=== PATIENT | female | born 1955 | race Caucasian/White ===

== ENCOUNTER 2016-10-24 03:29 | Emergency (ER) | payer OTHER, MEDICAID ==
[~2016-10-24] VITALS: Ht 160 cm; Wt 93.2 kg
[~2016-10-24 03:29] MED LIST: ALBU18HF INHALATION; ALLO300T46 PO; ALPR0.254 PO; AMOX1TAB10 PO; ARIP2TAB8 PO; ASPI81TA3 PO; CHOL50009 PO; DIPH1TAB25 PO; DIVA250T4 PO; DOCU-159 PO; FOLI1TAB5 PO; HYDR-902 PO; HYDR4TAB PO; METF500T4 PO; METO5TAB65 PO; MONT10TA24 PO; OXYC1TAB23 PO; OXYC20TA41 PO; POTA10TA37 PO
[2016-10-24 03:32] VITALS: Ht 160 cm; Wt 93.2 kg
[2016-10-24] MEDS ORDERED: HYDROCODONE/APAP (10/325) TAB PO ONE (04:30)
--- NOTE | 2016-10-24 05:30 | RADRPT ---
PROCEDURE: XR Hip. CLINICAL INDICATION: Right hip pain. TECHNIQUE: AP and oblique views of the right hip were performed. COMPARISON: No prior exam is available for comparison FINDINGS: Examination is limited secondary to patient's body habitus. The osseous structures demonstrate norm al alignment and mineralization. No acute fracture is identified. There is severe right femoral maura tabular joint space narrowing and acetabular osteophyte formation. The right sacroiliac joint is gr ossly unremarkable. The soft tissues are unremarkable. IMPRESSION: 1. Limited evaluation secondary to patient's body habitus. No definite fracture is seen. 2. Severe right hip arthrosis. RPTAT: HH .Daisy Menon MD, MD Date Time Electronically viewed and signed by .Daisy Menon MD, on 10/24/2016 05:38 .G/
--- NOTE | 2016-10-24 05:45 | ERD ---
ER Documentation Chief Complaint Date/Time DATE: 10/24/16 TIME: 05:51 Chief Complaint back pain and BLE pain r/t mechanical fall HPI This is a 61-year-old female who has right hip pain and lower back pain after slipping out of her bed. No nausea no vomiting no fevers no chills. No head trauma. No loss of consciousness. No other current complaints ROS All systems reviewed and are negative except as per history of present illness. Medications Home Meds Active Scripts Amoxicillin/Potassium Clav (Amox-Clav 875-125 mg Tablet) 875-125 mg Tab, 1 TAB PO BID, #14 TAB Prov:HERBIE FRANCISCO MD 05/19/16 Hydrocodone/Acetaminophen ([place] 10-325 Tablet) 1 Each Tablet, 1 TAB PO Q6H Y for PAIN, #20 TAB Prov:GRACIA GAMEZ DO 05/14/16 Hydromorphone Hcl (Dilaudid) 4 Mg Tab, 4 MG PO Q4H Y for PAIN, #20 TAB Prov:NAEL LITTLEJOHN 04/05/16 Reported Medications Diphenoxylate Hcl-Atropine* (Lomotil*) 1 Tab Tab, 1 TAB PO QID Y for DIARRHEA, TAB 01/20/16 Alprazolam* (Alprazolam*) 0.25 Mg Tablet, 0.25 MG PO Q12 Y for ANXIETY, TAB 01/20/16 Albuterol Sulfate* (Ventolin HFA*) 18 Gm Hfa.aer.ad, 2 PUFF INHALATION Q4H Y for WHEEZING AND SOB, #1 INHALER 01/20/16 Oxycodone Hcl-Acetaminophen* (Oxycodone Hcl-Acetaminophen*) 5-325 Mg Tablet, 1 TAB PO Q4H Y for PAIN, TAB 01/20/16 Oxycodone Hcl* (Oxycontin*) 20 Mg Tab.er.12h, 20 MG PO Q12 Y for PAIN, TAB 01/20/16 Docusate Sodium* (Docusate Sodium*) 100 Mg Capsule, 100 MG PO BID Y for CONSTIPATION, #60 CAP 11/25/15 Divalproex Sodium* (Divalproex Sodium*) 250 Mg Tablet.dr, 750 MG PO QHS, #120 TAB 11/25/15 Aripiprazole* (Abilify*) 2 Mg Tablet, 2 MG PO QHS, #30 TAB 11/25/15 Cholecalciferol* (Vitamin D*) 5,000 Unit Tablet, 5000 UNIT PO DAILY, TAB 07/13/14 Aspirin* (Aspirin* Chew) 81 Mg Tab.chew, 81 MG PO DAILY, TAB.CHEW 07/13/14 Metolazone* (Metolazone*) 5 Mg Tablet, 5 MG PO DAILY, TAB 07/13/14 Potassium Chloride* (K-Dur*) 10 Meq Tab.prt.sr, 10 MEQ PO BID, TAB 07/13/14 Montelukast Sodium* (Montelukast Sodium*) 10 Mg Tablet, 10 MG PO HS, TAB 07/13/14 Allopurinol* (Zyloprim*) 300 Mg Tablet, 300 MG PO DAILY 03/05/13 Multivitamins W-Minerals/Lut (Centrum Silver Chewable Tablet) 1 Tab Tablet, 1 TAB PO DAILY 03/05/13 Metformin* (Glucophage*) 500 Mg Tab, 500 MG PO BID 03/05/13 Allergies Allergies: Coded Allergies: morphine (Verified Allergy, Mild, 05/16/16) UNK SAYS SHE DOESNT LIKE IT, MAKES HER SKIN"CRAWL". AWARE -OK TO GIVE Penicillins (Verified Allergy, Unknown, 10/24/16) PMhx/Soc History of Surgery: Yes (r knee sx) Anesthesia Reaction: No Hx Neurological Disorder: Yes (diabetic neuropathy) Hx Respiratory Disorders: Yes (COPD) Hx Cardiac Disorders: Yes (HTN) Hx Psychiatric Problems: Yes (DEPRESSION) Hx Miscellaneous Medical Probl: Yes (COPD,DM, arthritis,CKD) Hx Alcohol Use: No Hx Substance Use: No Hx Tobacco Use: Yes Smoking Status: Former smoker Physical Exam Vitals Vital Signs Date Time Temp Pulse Resp B/P Pulse Ox O2 Delivery O2 Flow Rate FiO2 10/24/16 04:18 82 11 94/55 96 Room Air 10/24/16 03:32 100.5 89 18 104/56 92 Physical Exam Const: [] Head: Atraumatic Eyes: Normal Conjunctiva ENT: Normal External Ears, Nose and Mouth. Neck: Full range of motion..~ No meningismus. Resp: Clear to auscultation bilaterally Cardio: Regular rate and rhythm, no murmurs Abd: Soft, non tender, non distended. Normal bowel sounds Skin: No petechiae or rashes Back: No midline or flank tenderness Ext: No cyanosis, or edema Neur: Awake and alert Psych: Normal Mood and Affect Results 24 hrs Current Medications Medications (Trade) Dose Ordered Sig/Nelson Route PRN Reason Start Time Stop Time Status Last Admin Dose Admin Acetaminophen/ Hydrocodone Bitart ([place] ()) 1 tab ONCE ONCE PO 10/24/16 04:30 10/24/16 04:31 DC 10/24/16 04:12 Procedures/MDM X-ray Hip 2V Interpreted by me: Bones: [No fracture] Joints: [No dislocation] Foreign body: [None] Medical decision-makin female mechanical fall. No evidence of fracture. At this point is clinically stable. Be discharged back home. Departure Diagnosis: Primary Impression: Fall Encounter type: initial encounter Qualified Code: W19.XXXA - Fall, initial encounter Condition: Stable Patient Instructions: Hip Contusion NAEL LITTLEJOHN Oct 24, 2016 05:53
[2016-10-24 07:30] VITALS: BP 107/77; PULSE 82; RESP 14
== END 2016-10-24 07:30 | disposition home or self-care (01) ==
LOC: E/R 03:29
DX: S39.92XA Unspecified injury of lower back, initial encounter (principal); S79.911A Unspecified injury of right hip, initial encounter; J44.9 Chronic obstructive pulmonary disease, unspecified; E11.9 Type 2 diabetes mellitus without complications; I12.9 Hypertensive chronic kidney disease with stage 1 through stage 4 chronic kidney disease, or unspecified chronic kidney disease; N18.9 Chronic kidney disease, unspecified; W06.XXXA Fall from bed, initial encounter; Y92.9 Unspecified place or not applicable; Z87.891 Personal history of nicotine dependence; Z79.82 Long term (current) use of aspirin; Z79.84 Long term (current) use of oral hypoglycemic drugs
CPT/HCPCS: 73510

== ENCOUNTER 2017-01-15 05:41 | Observation (INO) | payer OTHER, MEDICAID ==
[~2017-01-15] VITALS: Ht 157.5 cm; Wt 93.2 kg
[2017-01-15] MEDS ORDERED: HYDROmorphONE 1 MG/ML SYG IV STA (06:17)
[2017-01-15] MEDS ORDERED: SOD CHLORIDE 0.9% 1,000 ML IV STA ×2 (06:17→07:18)
[2017-01-15 06:38] LABS: ADD SCAN DIFF NO
[2017-01-15 06:39] LABS: BASOPHILS % 0.4 % (0.0-2.0); EOSINOPHILS # 0.2 10^3/ul (0.0-0.5); EOSINOPHILS % 2.2 % (0.0-7.0); HEMATOCRIT 37.5 % (37.0-47.0); HEMOGLOBIN 12.7 g/dl (12.0-16.0); LYMPHOCYTES # 0.6 10^3/ul (0.8-2.9); LYMPHOCYTES % 6.2 % (15.0-51.0); MEAN CORPUSCULAR HEMOGLOBIN 31.1 pg (29.0-33.0); MEAN CORPUSCULAR HGB CONC 33.9 g/dl (32.0-37.0); MEAN CORPUSCULAR VOLUME 91.9 fl (82.0-101.0); MEAN PLATELET VOLUME 10.5 fl (7.4-10.4); MONOCYTES % 9.4 % (0.0-11.0); NEUTROPHIL # 8.4 10^3/ul (1.6-7.5); NEUTROPHILS % 81.5 % (39.0-77.0); PLATELET COUNT 142 10^3/UL (140-415); RED BLOOD COUNT 4.08 10^6/ul (4.20-5.40); RED CELL DISTRIBUTION WIDTH 12.9 % (11.5-14.5); WHITE BLOOD COUNT 10.3 10^3/ul (4.8-10.8)
[2017-01-15 07:05] LABS: CALCIUM 8.9 mg/dl (8.4-10.2); CREATININE 1.34 mg/dl (0.44-1.00); POTASSIUM 3.6 mmol/L (3.5-5.1)
--- NOTE | 2017-01-15 07:47 | RADRPT ---
PROCEDURE: CT L-Spine. CLINICAL INDICATION: Back pain TECHNIQUE: A CT of the lumbar spine was performed on a multidetector CT scanner utilizing axial im ages from the thoracic lumbar junction through the lumbar sacral junction. Sagittal and coronal ref ormatted images were made. The CTDIvol is 38mGy and the DLP is 1060mGycm. One or more of the followi ng dose reduction techniques were used: Automated exposure control, Adjustment of the mA and/or kV a ccording to patient size, and/or use of iterative reconstruction technique. COMPARISON: None available. FINDINGS: Lumbar dextroscoliosis with apex at L2. No evidence of an acute lumbar vertebral compression fracture. T12-L1: Severe disk space narrowing. Disk osteophyte complex and facet arthropathy with mild spina l canal and moderate left foraminal narrowing. L1-2: Grade 1 retrolisthesis. Severe left-sided disk height loss. Broad posterior disk osteophyte c omplex with moderate to severe bony spinal canal narrowing. Moderate to severe left and moderate ri ght foraminal narrowing. L2-3: Grade 1 retrolisthesis. Severe left-sided disk height loss. Broad posterior disk osteophyte c omplex with moderate to severe bony spinal canal narrowing. Moderate to severe left and moderate ri ght foraminal narrowing. L3-4: Severe disk height loss, greater on the left. Broad disk osteophyte complex and facet arthrop athy with severe spinal canal stenosis. Moderate to severe bilateral foraminal stenosis. L4-5: Severe disk height loss, greater on the right. A large disk osteophyte complex and facet arth ropathy results in narrowing of the lateral recess bilaterally and mild spinal canal narrowing. Sev ere right and mild to moderate left foraminal narrowing. L5-1: Severe disk height loss, greater on the right. Broad disk osteophyte complex, foraminal disk osteophytes and facet arthropathy cause severe bilateral foraminal stenosis. No high-grade bony spi nal canal narrowing. Colonic diverticulosis. Left renal cyst. Sacroiliac joint degenerative changes. Aortoiliac atherosclerosis. IMPRESSION: No acute compression fracture. Lumbar dextroscoliosis with apex at L2. Advanced multilevel discogenic and facet disease as detailed. Severe spinal canal stenosis L1-2 through L3-4. Multilevel foraminal narrowings are detailed in the findings. RPTAT: AA .Teddy Knox MD, MD Date Time Electronically viewed and signed by .Teddy Knox MD, MD on 01/15/2017 07:47 .T/
[2017-01-15] MEDS ORDERED: ACETAMINOPHEN 325 MG TAB PO PRN ×2 (08:30→09:30)
[2017-01-15] MEDS ORDERED: ONDANSETRON 4 MG INJ IV PRN ×2 (08:30→09:30)
--- NOTE | 2017-01-15 08:36 | ERA ---
ER Documentation Chief Complaint Date/Time DATE: 01/15/17 TIME: 08:29 Chief Complaint flank pain from fall x 2 days ago HPI 61-year-old female with a history of diabetes, hypertension, and chronic back pain sent from her assisted living facility for difficulty ambulating. She states she was seen at [facility] 2 days ago for a fall out of bed. It was a mechanical fall. She hit her lower back on the ground and her head as well, but denies any loss of consciousness. She has been unable to ambulate since secondary to pain and generalized weakness. She was offered admission at [facility], however she declined. She denies any fevers, chills, chest pain, shortness of breath, focal weakness, urinary incontinence, or bowel incontinence. She does complain of tingling in the back of both of her legs. No abdominal pain, nausea, vomiting. Of note, she was also seen January 11 at [facility] ROS All systems reviewed and are negative except as per history of present illness. Medications Home Meds Active Scripts Amoxicillin/Potassium Clav (Amox-Clav 875-125 mg Tablet) 875-125 mg Tab, 1 TAB PO BID, #14 TAB Prov:HERBIE FRANCISCO MD 05/19/16 Hydrocodone/Acetaminophen ([place] 10-325 Tablet) 1 Each Tablet, 1 TAB PO Q6H Y for PAIN, #20 TAB Prov:GRACIA GAMEZ DO 05/14/16 Hydromorphone Hcl (Dilaudid) 4 Mg Tab, 4 MG PO Q4H Y for PAIN, #20 TAB Prov:NAEL LITTLEJOHN 04/05/16 Reported Medications Diphenoxylate Hcl-Atropine* (Lomotil*) 1 Tab Tab, 1 TAB PO QID Y for DIARRHEA, TAB 01/20/16 Alprazolam* (Alprazolam*) 0.25 Mg Tablet, 0.25 MG PO Q12 Y for ANXIETY, TAB 01/20/16 Albuterol Sulfate* (Ventolin HFA*) 18 Gm Hfa.aer.ad, 2 PUFF INHALATION Q4H Y for WHEEZING AND SOB, #1 INHALER 01/20/16 Oxycodone Hcl-Acetaminophen* (Oxycodone Hcl-Acetaminophen*) 5-325 Mg Tablet, 1 TAB PO Q4H Y for PAIN, TAB 01/20/16 Oxycodone Hcl* (Oxycontin*) 20 Mg Tab.er.12h, 20 MG PO Q12 Y for PAIN, TAB 01/20/16 Docusate Sodium* (Docusate Sodium*) 100 Mg Capsule, 100 MG PO BID Y for CONSTIPATION, #60 CAP 11/25/15 Divalproex Sodium* (Divalproex Sodium*) 250 Mg Tablet.dr, 750 MG PO QHS, #120 TAB 11/25/15 Aripiprazole* (Abilify*) 2 Mg Tablet, 2 MG PO QHS, #30 TAB 11/25/15 Cholecalciferol* (Vitamin D*) 5,000 Unit Tablet, 5000 UNIT PO DAILY, TAB 07/13/14 Aspirin* (Aspirin* Chew) 81 Mg Tab.chew, 81 MG PO DAILY, TAB.CHEW 07/13/14 Metolazone* (Metolazone*) 5 Mg Tablet, 5 MG PO DAILY, TAB 07/13/14 Potassium Chloride* (K-Dur*) 10 Meq Tab.prt.sr, 10 MEQ PO BID, TAB 07/13/14 Montelukast Sodium* (Montelukast Sodium*) 10 Mg Tablet, 10 MG PO HS, TAB 07/13/14 Allopurinol* (Zyloprim*) 300 Mg Tablet, 300 MG PO DAILY 03/05/13 Multivitamins W-Minerals/Lut (Centrum Silver Chewable Tablet) 1 Tab Tablet, 1 TAB PO DAILY 03/05/13 Metformin* (Glucophage*) 500 Mg Tab, 500 MG PO BID 03/05/13 Allergies Allergies: Coded Allergies: morphine (Verified Allergy, Mild, 05/16/16) UNK SAYS SHE DOESNT LIKE IT, MAKES HER SKIN"CRAWL". AWARE -OK TO GIVE Penicillins (Verified Allergy, Unknown, 10/24/16) PMhx/Soc History of Surgery: Yes (r knee sx) Anesthesia Reaction: No Hx Neurological Disorder: Yes (diabetic neuropathy) Hx Respiratory Disorders: Yes (COPD) Hx Cardiac Disorders: Yes (HTN) Hx Psychiatric Problems: Yes (DEPRESSION) Hx Miscellaneous Medical Probl: Yes (COPD,DM, arthritis,CKD) Hx Alcohol Use: No Hx Substance Use: No Hx Tobacco Use: Yes FmHx Family History: No diabetes Physical Exam Vitals Vital Signs Date Time Temp Pulse Resp B/P Pulse Ox O2 Delivery O2 Flow Rate FiO2 01/15/17 07:05 98.9 86 16 103/58 97 Nasal Cannula 2.0 01/15/17 05:55 99.2 80 16 109/53 96 Physical Exam Const: Laying in bed, no apparent distress Head: Atraumatic Eyes: Normal Conjunctiva ENT: Very dry oral mucosa Neck: Full range of motion..~ No meningismus. Resp: Clear to auscultation bilaterally Cardio: Regular rate and rhythm, no murmurs Abd: Soft, non tender, non distended. Normal bowel sounds Skin: No petechiae or rashes Back: Positive midline lumbar tenderness to palpation, no obvious step-offs, no CVA tenderness. No saddle anesthesia Ext: No cyanosis, or edema Neur: Awake and alert and oriented 3, cranial nerves intact, strength and sensations grossly intact in all 4 extremities. Psych: Normal Mood and Affect Result Diagram: 01/15/1720 01/15/1720 Results 24 hrs Laboratory Tests Test 01/15/17 06:20 White Blood Count 10.310^3/ul Red Blood Count 4.0810^6/ul Hemoglobin 12.7g/dl Hematocrit 37.5% Mean Corpuscular Volume 91.9fl Mean Corpuscular Hemoglobin 31.1pg Mean Corpuscular Hemoglobin Concent 33.9g/dl Red Cell Distribution Width 12.9% Platelet Count 06481^3/UL Mean Platelet Volume 10.5fl Neutrophils % 81.5% Lymphocytes % 6.2% Monocytes % 9.4% Eosinophils % 2.2% Basophils % 0.4% Nucleated Red Blood Cells % 0.0/100WBC Neutrophils # 8.410^3/ul Lymphocytes # 0.610^3/ul Monocytes # 1.010^3/ul Eosinophils # 0.210^3/ul Basophils # 0.010^3/ul Nucleated Red Blood Cells # 0.010^3/ul Sodium Level 141mmol/L Potassium Level 3.6mmol/L Chloride Level 99mmol/L Carbon Dioxide Level 29mmol/L Anion Gap 17 Blood Urea Nitrogen 38mg/dl Creatinine 1.34mg/dl Glucose Level 84mg/dl Calcium Level 8.9mg/dl Current Medications Medications (Trade) Dose Ordered Sig/Nelson Route PRN Reason Start Time Stop Time Status Last Admin Dose Admin Sodium Chloride (NS) 1,000 ml @ 1,000 mls/hr Q1H STAT IV 01/15/17 06:17 01/15/17 07:16 DC 01/15/17 07:05 Hydromorphone HCl 1 mg 1 mg ONCE STAT IV 01/15/17 06:17 01/15/17 06:19 DC 01/15/17 06:57 Sodium Chloride (NS) 1,000 ml @ 1,000 mls/hr Q1H STAT IV 01/15/17 07:18 01/15/17 08:17 DC 01/15/17 08:13 Ondansetron HCl (Zofran Inj) 4 mg BRIDGE ORDER PRN IV NAUSEA AND/OR VOMITING 01/15/17 08:30 01/16/17 08:29 Acetaminophen (Tylenol Tab) 650 mg ER BRIDGE PRN PO MILD PAIN/FEVER 01/15/17 08:30 01/16/17 08:29 Procedures/MDM CT lumbar: IMPRESSION: No acute compression fracture. Lumbar dextroscoliosis with apex at L2. Advanced multilevel discogenic and facet disease as detailed. Severe spinal canal stenosis L1-2 through L3-4. Multilevel foraminal narrowings are detailed in the findings. RPTAT: AA .Teddy Knox MD, MD Date Time Electronically viewed and signed by .Teddy Knox MD, MD on 01/15/2017 07:47 Labs CBC: no anemia or evidence of infection BMP: Prerenal azotemia, elevated anion gap MDM Patient is presenting with acute on chronic back pain and inability to walk secondary to her weakness and pain. She has no evidence of focal neurologic deficits on exam. CT of the spine was ordered to evaluate for any spinal fracture or misalignment. There was evidence of chronic changes seen on the CT with nothing acute. I have a low suspicion for cord compression. However given the patient's severe spinal stenosis, she likely has an acute exacerbation of her chronic symptoms. Labs showed evidence of dehydration. Her anion gap is likely elevated secondary to dehydration and less likely septic shock. 2 L of IV fluids were given. Dilaudid was given for pain. Given the patient's uncontrolled pain and inability to ambulate with no half-way care where she lives, the patient will require admission for pain control and physical therapy. She may even need placement in a half-way facility if she does not improve. Accepting Care Team: Current data and ongoing care discussed. Time: Time of admission Primary Provider: Manuel Consulting: None Outstanding Data: none Departure Diagnosis: Primary Impression: Acute exacerbation of chronic low back pain Additional Impressions: Fall with no significant injury Qualified Code: W19.XXXA - Fall with no significant injury, initial encounter Spinal stenosis of lumbar region Acute prerenal azotemia Condition: Fair ADDIE NOLAN MD Jan 15, 2017 08:36
[2017-01-15] MEDS ORDERED: ALBUTEROL/IPRATROPIUM (NEB) 3 ML AMP HHN PRN (09:30)
[2017-01-15] MEDS ORDERED: OXYCODONE/ACETAMINOPHEN (5/325) TAB PO PRN (09:30)
[2017-01-15] MEDS ORDERED: NACL 0.9% 3 ML SYG IV SCH (09:30)
[2017-01-15] MEDS ORDERED: hydrALAzine 20 MG INJ IV PRN (09:30)
[2017-01-15] MEDS ORDERED: ALPRAZOLAM 0.25 MG TAB PO PRN (09:30)
[2017-01-15] MEDS ORDERED: DOCUSATE SODIUM 100 MG CAP PO PRN (09:30)
--- NOTE | 2017-01-15 09:47 | HP ---
Date/Time of Note Date/Time of Note DATE: 01/15/17 TIME: 09:43 Assessment/Plan VTE Prophylaxis VTE Prophylaxis Intervention: heparin Assessment/Plan Chief Complaint/Hosp Course 1. Status post mechanical fall with worsening back pain. The patient has a prior history of chronic back pain and she is on pain medications chronically. The patient's CT scan of the lumbar spine showed no acute compression fracture, but advanced multilevel discogenic and facet disease with severe spinal canal stenosis at L1 through L2 through L3 through L4. Continue pain control. Will involve pain management on the case. Will order physical therapy. 2. COPD. No evidence of exacerbation. Continue as needed inhaled bronchodilators. 3. Chronic kidney disease. Monitor BUN and creatinine closely. Avoid nephrotoxic medications. 4. Depression. Continue mood stabilizers. 5. Gout. Continue allopurinol. Will obtain uric acid level. 6. Essential hypertension. The patient was started on PRN antihypertensives. Blood pressure currently stable. 7 . History of hypothyroidism. Will obtain a thyroid function panel. 8. Type 2 diabetes mellitus. The patient was noticed to be taking metformin. This will be withheld because of her chronic kidney disease. Patient will be started on sliding scale insulin. Hemoglobin A1c will be obtained to evaluate the blood glucose control over the past few weeks. 9. Nicotine use. Cessation will be advised. The patient will be provided with nicotine patch if she has any symptoms of nicotine withdrawal. Plan: The patient will be admitted to inpatient medical surgical floor. The patient will be started on a carbohydrate controlled diet. The patient will be started on DVT prophylaxis and gastrointestinal prophylaxis. The patient will remain a full code. Activities will be with assist. The rest of the patient's management will be based on the clinical course and the results of diagnostic studies. Based on the patient's clinical presentation, she most probably requires at least 2 midnights' stay for further management and evaluation of her clinical presentation. The case and management of this patient was fully discussed with Dr. Jackson Problems: HPI/ROS Admit Date/Time Admit Date/Time Hx of Present Illness Reason for admission: Back pain. Status post mechanical fall. This is a 61-year-old female with multiple comorbidities including essential hypertension, type 2 diabetes mellitus, hypothyroidism, COPD, chronic kidney disease, gout, nicotine use, and obesity who apparently fell from her bed on 01/14 as per the patient's family who was at the bedside during the patient interview. The patient verbalized that she hit her lower back on the floor and hit her head on the night stand. The patient was initially evaluated at [facility], where she was offered to be admitted for further pain management. Apparently the patient's imaging studies from [facility] was negative for any acute injuries. The patient comes back today to [facility] because of intractable lower back pain and inability to ambulate after the fall. The patient denied any focal weakness. However, she was complaining of significant lower back pain. The patient denied any urinary or stool incontinence. She denied any chest pain. She denied any nausea, vomiting, abdominal pain, diarrhea, hematochezia, melena , dysuria, or hematuria. The patient underwent a CT scan of the lumbar spine in the emergency room that was negative for any acute compression fractures. However, the CT showed severe spinal canal stenosis at L1-2 through L3-4. The patient was treated with the IV fluids along with IV analgesics in the emergency room. ROS Constitutional: no complaints Eyes: no complaints ENT: no complaints Respiratory: no complaints Cardiovascular: no complaints Gastrointestinal: no complaints Genitourinary: no complaints Musculoskeletal: back pain Skin: no complaints Neurologic: no complaints Endocrine: no complaints Lymphatic: no complaints Psychological: no complaints Immunologic: no complaints PMH/Family/Social Past Medical History Medical History: diabetes, hypertension, hypothyroid, renal disease, other ( Carotid artery disease) Past Surgical History Past Surgical Hx: other (Right knee replacement, hysterectomy, .) Social History Alcohol Use: none Smoking Status: Current every day smoker Drug Use: none Exam/Review of Systems Vital Signs Vitals Vital Signs Date Time Temp Pulse Resp B/P Pulse Ox O2 Delivery O2 Flow Rate FiO2 01/15/17 07:05 98.9 86 16 103/58 97 Nasal Cannula 2.0 Exam Exam General: Obese 61 year-old female lying in bed in no apparent distress. HEENT: Normocephalic, atraumatic. Eyes: Anicteric sclerae, conjunctivae clear. ENT: Nasal septum midline, oral mucosa moist. Neck supple, no JVD noticed. Respiratory: Bilaterally clear breath sounds. No use of accessory muscles of respiration. No adventitious breath sounds. Cardiovascular: S1, S2 heard. No murmurs or gallops. Abdomen: Soft, nontender, and nondistended. Bowel sounds positive in all 4 quadrants. Genitourinary: Deferred. Extremities: No cyanosis, no clubbing. Bilateral lower extremity pedal edema. Peripheral pulses palpable. Neurologic: Cranial nerves II through XII grossly intact. The patient is awake, alert, and oriented. Skin: Normal skin turgor. Hirsutism. Labs Result Diagram: 01/15/17 0620 01/15/17 0620 Medications Medications Current Medications Acetaminophen (Tylenol Tab) 650 mg Q6H PRN PO PAIN LEVEL 1-3 OR FEVER; Start at 09:30 Oxycodone/ Acetaminophen (Percocet (5/ 325)) 1 tab Q6H PRN PO MODERATE PAIN LEVEL 4-6; Start 01/15/17 at 09:30; Status UNV Hydromorphone HCl (Dilaudid) 0.5 mg Q4H PRN IV SEVERE PAIN LEVEL 7-10; Start at 09:30; Status UNV Heparin Sodium (Porcine) (Heparin (5000 Units/0.5 ml)) 5,000 unit Q12 SC ; Start 01/15/17 at 21:00; Status UNV Ondansetron HCl (Zofran Inj) 4 mg Q6H PRN IV NAUSEA AND/OR VOMITING; Start 04/24 at 09:30; Status UNV Allopurinol (Zyloprim) 300 mg DAILY PO ; Start 01/16/17 at 09:00 Alprazolam (Xanax) 0.25 mg Q12H PRN PO ANXIETY; Start 01/15/17 at 09:30 Aripiprazole (Abilify) 2 mg QHS PO ; Start 01/15/17 at 21:00 Aspirin (Aspirin) 81 mg DAILY PO ; Start 01/16/17 at 09:00; Status UNV Cholecalciferol (Vitamin D) 5,000 unit DAILY PO ; Start 01/16/17 at 09:00; Status UNV Divalproex Sodium (Depakote) 750 mg QHS PO ; Start 01/15/17 at 21:00; Status UNV Docusate Sodium (Colace) 100 mg BID PRN PO CONSTIPATION; Start 01/15/17 at 09: 30; Status UNV Montelukast Sodium (Singulair) 10 mg HS PO ; Start 01/15/17 at 21:00; Status UNV Diagnostic Test (Pha) (Accu-Chek) 1 ea 02 XX ; Start 01/16/17 at 02:00 Hydralazine HCl (Apresoline) 10 mg Q6H PRN IV SBP>160; Start 01/15/17 at 09:30 ; Status UNV Procedures Procedures Lumbar Spine CT IMPRESSION: No acute compression fracture. Lumbar dextroscoliosis with apex at L2. Advanced multilevel discogenic and facet disease as detailed. Severe spinal canal stenosis L1-2 through L3-4. Multilevel foraminal narrowings are detailed in the findings. PRIYANKA DUEÑAS NP Jan 15, 2017 09:47
[2017-01-15] MEDS ORDERED: GLUCOSE GEL 15 GRAM TUBE BUCCAL PRN (10:00)
[2017-01-15] MEDS ORDERED: DEXTROSE 50% 50 ML SYRINGE IV PRN ×2 (10:00)
[2017-01-15] MEDS ORDERED: GLUCOSE GEL 15 GRAM TUBE PO PRN ×2 (10:00)
[2017-01-15] MEDS ORDERED: GLUCAGON 1 MG INJ IM PRN (10:00)
[2017-01-15] MEDS: INSULIN ASPART [NOVOLOG] 3 ML PEN SC SCH ×3 (12:00→21:00)
[2017-01-15] MEDS ORDERED: LOPERAMIDE 2 MG CAP PO ONE (12:00)
[2017-01-15 12:35] LABS: CHOL/HDL RATIO 2.3 RATIO
[2017-01-15 15:10] VITALS: TEMP 98.7
[2017-01-15] MEDS: HYDROmorphONE 1 MG/ML SYG IV PRN ×2 (15:15→20:04)
[2017-01-15 17:18] VITALS: PULSE 71
[2017-01-15 18:55] VITALS: BP 106/52; RESP 20
[2017-01-15 20:39] VITALS: BP 129/58; RESP 18
[2017-01-15] MEDS ORDERED: DIVALPROEX (EC) 250 MG TAB PO SCH (21:00)
[2017-01-15] MEDS ORDERED: ARIPIPRAZOLE 2 MG TAB PO SCH (21:00)
[2017-01-15] MEDS ORDERED: MONTELUKAST 10 MG TAB PO SCH (21:00)
[2017-01-15] MEDS: HEPARIN 5,000 UNIT/0.5 ML VIAL SC SCH (22:04)
[2017-01-15 23:33] VITALS: Ht 157.5 cm; Wt 93.2 kg
[2017-01-16] MEDS: HYDROmorphONE 1 MG/ML SYG IV PRN ×3 (00:34→09:26)
[2017-01-16] MEDS ORDERED: ACCU-CHEK XX SCH (02:00)
[2017-01-16 06:30] LABS: ADD SCAN DIFF NO
[2017-01-16 06:46] LABS: BASOPHILS % 0.3 % (0.0-2.0); EOSINOPHILS # 0.3 10^3/ul (0.0-0.5); EOSINOPHILS % 3.2 % (0.0-7.0); HEMATOCRIT 33.7 % (37.0-47.0); HEMOGLOBIN 11.1 g/dl (12.0-16.0); LYMPHOCYTES # 1.6 10^3/ul (0.8-2.9); LYMPHOCYTES % 20.2 % (15.0-51.0); MEAN CORPUSCULAR HEMOGLOBIN 30.5 pg (29.0-33.0); MEAN CORPUSCULAR HGB CONC 32.9 g/dl (32.0-37.0); MEAN CORPUSCULAR VOLUME 92.6 fl (82.0-101.0); MEAN PLATELET VOLUME 11.2 fl (7.4-10.4); MONOCYTE # 0.7 10^3/ul (0.3-0.9); MONOCYTES % 9.3 % (0.0-11.0); NEUTROPHIL # 5.2 10^3/ul (1.6-7.5); NEUTROPHILS % 66.7 % (39.0-77.0); PLATELET COUNT 138 10^3/UL (140-415); RED BLOOD COUNT 3.64 10^6/ul (4.20-5.40); RED CELL DISTRIBUTION WIDTH 12.8 % (11.5-14.5); WHITE BLOOD COUNT 7.8 10^3/ul (4.8-10.8)
[2017-01-16 07:04] LABS: CALCIUM 8.7 mg/dl (8.4-10.2); CREATININE 0.99 mg/dl (0.44-1.00); POTASSIUM 3.5 mmol/L (3.5-5.1)
[2017-01-16 07:35] LABS: MAGNESIUM 1.8 mg/dl (1.7-2.5); PHOSPHORUS 2.7 mg/dl (2.5-4.9)
[2017-01-16] MEDS: INSULIN ASPART [NOVOLOG] 3 ML PEN SC SCH ×2 (08:08→12:15)
[2017-01-16 08:12] VITALS: BP 119/55; RESP 20
[2017-01-16] MEDS ORDERED: ALLOPURINOL 300 MG TAB PO SCH (09:00)
[2017-01-16] MEDS ORDERED: CHOLECALCIFEROL 1,000 UNIT TAB PO SCH (09:00)
[2017-01-16] MEDS ORDERED: ASPIRIN 81 MG TAB PO SCH (09:00)
[2017-01-16] MEDS: HEPARIN 5,000 UNIT/0.5 ML VIAL SC SCH (09:35)
--- NOTE | 2017-01-16 12:25 | PDOCDIS ---
Discharge Instructions DIAGNOSIS Discharge Diagnosis Intractable back pain. CONDITION Patient Condition: Stable OTHER ORDERS: Other Orders: 1. Resume home medications. 2. Take a low-cholesterol, carbohydrate controlled diet. 3. Activities with assist. 4. Follow-up with your primary care physician 1 week. PRIYANKA DUEÑAS NP Jan 16, 2017 12:25
--- NOTE | 2017-01-16 14:21 | DS ---
Date/Time of Note Date/Time of Note DATE: 01/16/17 TIME: 14:17 Discharge Summary Admission/Discharge Info Admit Date/Time Jan 15, 2017 at 08:27 Discharge Date/Time Discharge Diagnosis 1. Intractable back pain. 2. Status post mechanical fall with worsening back pain. 3. COPD. 4. Chronic kidney disease. 5. Depression. 6. Gout. 7. Essential hypertension. 8. History of hypothyroidism. 9. Type 2 diabetes mellitus. 10. Obesity. Patient Condition: Stable Consults 1. Sharon Mullen MD, Pain Management. Procedures Lumbar Spine CT IMPRESSION: No acute compression fracture. Lumbar dextroscoliosis with apex at L2. Advanced multilevel discogenic and facet disease as detailed. Severe spinal canal stenosis L1-2 through L3-4. Multilevel foraminal narrowings are detailed in the findings. Hx of Present Illness This is a 61-year-old female with multiple comorbidities including essential hypertension, type 2 diabetes mellitus, hypothyroidism, COPD, chronic kidney disease, gout, nicotine use, and obesity who apparently fell from her bed on 01/14 as per the patient's family who was at the bedside during the patient interview. The patient verbalized that she hit her lower back on the floor and hit her head on the night stand. The patient was initially evaluated at [facility], where she was offered to be admitted for further pain management. Apparently the patient's imaging studies from [facility] was negative for any acute injuries. The patient comes back today to [facility] because of intractable lower back pain and inability to ambulate after the fall. The patient denied any focal weakness. However, she was complaining of significant lower back pain. The patient denied any urinary or stool incontinence. She denied any chest pain. She denied any nausea, vomiting, abdominal pain, diarrhea, hematochezia, melena , dysuria, or hematuria. The patient underwent a CT scan of the lumbar spine in the emergency room that was negative for any acute compression fractures. However, the CT showed severe spinal canal stenosis at L1-2 through L3-4. The patient was treated with the IV fluids along with IV analgesics in the emergency room. Hospital Course The patient was admitted to inpatient medical surgical floor. The patient was started on appropriate pain medications. Pain management consult was called for managing analgesics. A physical therapy evaluation was ordered. Physical therapy evaluated the patient and recommended no long term needs. The patient currently lives in an assisted living facility. The patient has all the supplies at home including a front wheeled walker and a wheelchair. Home health was arranged for home physical therapy and home safety evaluation because the patient is planning to go home soon from the assisted living facility. The patient was noticed to have chronic kidney disease. However, the patient was taking metformin at home. Therefore, the patient's metformin was discontinued. The patient's renal function remains stable. Nephrotoxic medications were avoided. Patient has underlying COPD. She had no evidence of any COPD exacerbation. The patient was maintained on inhaled bronchodilators. Patient has a history of gout. The patient was noted to have elevated uric acid levels. The patient was continued on allopurinol. The patient has history of essential hypertension. Her blood pressure remained stable. She was maintained on as needed antihypertensives for any high blood pressure readings. The patient has underlying type 2 diabetes mellitus. Patient's hemoglobin A1c was found to be 5.9. The patient's blood sugars were controlled throughout the hospital course and that the patient did not need any corrective insulin. The patient had discontinued any metformin at home specifically since the patient has underlying chronic kidney disease. The patient apparently has history of hypothyroidism. She was not taking any Synthroid at home. The patient's thyroid function panel was within normal limits. The patient is a current nicotine use. The patient was advised on a cessation. Discharge Instructions 1. Resume home medications. 2. Take a low-cholesterol, carbohydrate controlled diet. 3. Activities with assist. 4. Follow-up with your primary care physician 1 week. The patient verbalized understanding of her discharge instructions. The case and management of this patient was fully discussed with Dr. Jackson [place] Meds Active Scripts Hydrocodone/Acetaminophen ([place] 10-325 Tablet) 1 Each Tablet, 1 TAB PO Q6H Y for PAIN, #20 TAB Prov:GRACIA GAMEZ DO 05/14/16 Reported Medications Diphenoxylate Hcl-Atropine* (Lomotil*) 1 Tab Tab, 1 TAB PO QID Y for DIARRHEA, TAB 01/20/16 Alprazolam* (Alprazolam*) 0.25 Mg Tablet, 0.25 MG PO Q12 Y for ANXIETY, TAB 01/20/16 Albuterol Sulfate* (Ventolin HFA*) 18 Gm Hfa.aer.ad, 2 PUFF INHALATION Q4H Y for WHEEZING AND SOB, #1 INHALER 01/20/16 Oxycodone Hcl* (Oxycontin*) 20 Mg Tab.er.12h, 20 MG PO Q12 Y for PAIN, TAB 01/20/16 Docusate Sodium* (Docusate Sodium*) 100 Mg Capsule, 100 MG PO BID Y for CONSTIPATION, #60 CAP 11/25/15 Divalproex Sodium* (Divalproex Sodium*) 250 Mg Tablet.dr, 750 MG PO QHS, #120 TAB 11/25/15 Aripiprazole* (Abilify*) 2 Mg Tablet, 2 MG PO QHS, #30 TAB 11/25/15 Cholecalciferol* (Vitamin D*) 5,000 Unit Tablet, 5000 UNIT PO DAILY, TAB 07/13/14 Aspirin* (Aspirin* Chew) 81 Mg Tab.chew, 81 MG PO DAILY, TAB.CHEW 07/13/14 Montelukast Sodium* (Montelukast Sodium*) 10 Mg Tablet, 10 MG PO HS, TAB 07/13/14 Allopurinol* (Zyloprim*) 300 Mg Tablet, 300 MG PO DAILY 03/05/13 Multivitamins W-Minerals/Lut (Centrum Silver Chewable Tablet) 1 Tab Tablet, 1 TAB PO DAILY 03/05/13 Discontinued Reported Medications Oxycodone Hcl-Acetaminophen* (Oxycodone Hcl-Acetaminophen*) 5-325 Mg Tablet, 1 TAB PO Q4H Y for PAIN, TAB 01/20/16 Metolazone* (Metolazone*) 5 Mg Tablet, 5 MG PO DAILY, TAB 07/13/14 Potassium Chloride* (K-Dur*) 10 Meq Tab.prt.sr, 10 MEQ PO BID, TAB 07/13/14 Metformin* (Glucophage*) 500 Mg Tab, 500 MG PO BID 03/05/13 Discontinued Scripts Amoxicillin/Potassium Clav (Amox-Clav 875-125 mg Tablet) 875-125 mg Tab, 1 TAB PO BID, #14 TAB Prov:HERBIE FRANCISCO MD 05/19/16 Hydromorphone Hcl (Dilaudid) 4 Mg Tab, 4 MG PO Q4H Y for PAIN, #20 TAB Prov:NAEL LITTLEJOHN 04/05/16 Follow-up Plan Follow-up with your primary care physician in 1 week. Primary Care Provider Ronak Duenas MD Time spent on discharge: > 30 minutes Pending Labs Laboratory Tests Test 01/15/17 18:42 01/15/17 21:01 01/16/17 05:25 01/16/17 08:04 Bedside Glucose 85mg/dL (70-220) 113mg/dL (70-220) 101mg/dL (70-220) White Blood Count 7.810^3/ul (4.8-10.8) Red Blood Count 3.6410^6/ul (4.20-5.40) Hemoglobin 11.1g/dl (12.0-16.0) Hematocrit 33.7% (37.0-47.0) Mean Corpuscular Volume 92.6fl (82.0-101.0) Mean Corpuscular Hemoglobin 30.5pg (29.0-33.0) Mean Corpuscular Hemoglobin Concent 32.9g/dl (32.0-37.0) Red Cell Distribution Width 12.8% (11.5-14.5) Platelet Count 88872^3/UL (140-415) Mean Platelet Volume 11.2fl (7.4-10.4) Neutrophils % 66.7% (39.0-77.0) Lymphocytes % 20.2% (15.0-51.0) Monocytes % 9.3% (0.0-11.0) Eosinophils % 3.2% (0.0-7.0) Basophils % 0.3% (0.0-2.0) Nucleated Red Blood Cells % 0.0/100WBC (0.0-0.0) Neutrophils # 5.210^3/ul (1.6-7.5) Lymphocytes # 1.610^3/ul (0.8-2.9) Monocytes # 0.710^3/ul (0.3-0.9) Eosinophils # 0.310^3/ul (0.0-0.5) Basophils # 0.010^3/ul (0.0-0.1) Nucleated Red Blood Cells # 0.010^3/ul (0.0-0.0) Sodium Level 141mmol/L (135-144) Potassium Level 3.5mmol/L (3.5-5.1) Chloride Level 100mmol/L (97-110) Carbon Dioxide Level 30mmol/L (21-31) Anion Gap 15 (8-16) Blood Urea Nitrogen 27mg/dl (7-20) Creatinine 0.99mg/dl (0.44-1.00) Glucose Level 79mg/dl (70-220) Calcium Level 8.7mg/dl (8.4-10.2) Phosphorus Level 2.7mg/dl (2.5-4.9) Magnesium Level 1.8mg/dl (1.7-2.5) Test 01/16/17 11:59 Bedside Glucose 99mg/dL (70-220) PRIYANKA DUEÑAS NP Jan 16, 2017 14:21 PRIYANKA DUEÑAS NP Jan 16, 2017 14:21
== END 2017-01-16 14:45 | disposition home health service (06) ==
LOC: E/R 05:41 → MS2 08:27
PROVIDERS: ADMIT Family Medicine; ATTEND Family Medicine
DX: M54.5 Low back pain (principal); J44.9 Chronic obstructive pulmonary disease, unspecified; I12.9 Hypertensive chronic kidney disease with stage 1 through stage 4 chronic kidney disease, or unspecified chronic kidney disease; E11.22 Type 2 diabetes mellitus with diabetic chronic kidney disease; E11.40 Type 2 diabetes mellitus with diabetic neuropathy, unspecified; N18.9 Chronic kidney disease, unspecified; F32.9 Major depressive disorder, single episode, unspecified; M10.9 Gout, unspecified; E03.9 Hypothyroidism, unspecified; M19.90 Unspecified osteoarthritis, unspecified site; E66.9 Obesity, unspecified; Z68.37 Body mass index [BMI] 37.0-37.9, adult; Z79.82 Long term (current) use of aspirin; Z79.84 Long term (current) use of oral hypoglycemic drugs; Z88.5 Allergy status to narcotic agent; Z88.0 Allergy status to penicillin; F17.200 Nicotine dependence, unspecified, uncomplicated; W06.XXXA Fall from bed, initial encounter; Y93.9 Activity, unspecified; Y99.9 Unspecified external cause status; Y92.9 Unspecified place or not applicable
CPT/HCPCS: 36415; 72131; 80048; 80061; 82306; 82652; 82962; 83036; 83735; 84100; 84439; 84443; 84560; 85025; 96361; 96374; 96376; 97162; 99285; G0378; J1170; J1644; J1815; J7030

== ENCOUNTER 2017-01-22 20:37 | Emergency (ER) | payer OTHER, MEDICAID ==
[~2017-01-22] VITALS: Ht 162.6 cm; Wt 80.0 kg
[~2017-01-22 20:37] MED LIST changes: -AMOX1TAB10 PO; -HYDR4TAB PO; -METF500T4 PO; -METO5TAB65 PO; -OXYC1TAB23 PO; -POTA10TA37 PO
[2017-01-22 20:43] VITALS: Ht 162.6 cm; Wt 80.0 kg
[2017-01-22] MEDS ORDERED: HYDROmorphONE 1 MG/ML SYG IM STA (21:16)
[2017-01-22] MEDS ORDERED: KETOROLAC 60 MG INJ IM STA (21:16)
[2017-01-22] MEDS ORDERED: NAPR-260 PO (21:18)
[2017-01-22] MEDS ORDERED: HYDR-902 PO (21:18)
[2017-01-22] MEDS ORDERED: METH750T93 PO (21:18)
--- NOTE | 2017-01-22 21:23 | ERD ---
ER Documentation Chief Complaint Date/Time DATE: 01/22/17 TIME: 21:21 Chief Complaint Back pain/chronic HPI This 61-year-old female presents with exacerbation of her lower back pain. She had previously fallen and injured her tailbone area. She has no new trauma. States that she has some [place] at home but has not been taking any anti- inflammatory pain medicine. No leg weakness. Has no other complaints. Denies shortness of breath. I reviewed her EMR and see that she has history of COPD and admission for severe sepsis but she denies any fevers or chills as well. States that she is just here for back pain ROS All systems reviewed and are negative except as per history of present illness. Medications Home Meds Active Scripts Naproxen* (Naprosyn*) 500 Mg Tablet, 500 MG PO BID, #20 TAB Prov:LUIS MEEHAN DO 01/22/17 Methocarbamol* (Robaxin*) 750 Mg Tablet, 750 MG PO TID, #14 TAB Prov:LUIS MEEHAN DO 01/22/17 Hydrocodone/Acetaminophen ([place] 10-325 Tablet) 1 Each Tablet, 1 EACH PO Q6, # 14 TAB Prov:LUIS MEEHAN DO 01/22/17 Hydrocodone/Acetaminophen ([place] 10-325 Tablet) 1 Each Tablet, 1 TAB PO Q6H Y for PAIN, #20 TAB Prov:GRACIA GAMEZ DO 05/14/16 Reported Medications Diphenoxylate Hcl-Atropine* (Lomotil*) 1 Tab Tab, 1 TAB PO QID Y for DIARRHEA, TAB 01/20/16 Alprazolam* (Alprazolam*) 0.25 Mg Tablet, 0.25 MG PO Q12 Y for ANXIETY, TAB 01/20/16 Albuterol Sulfate* (Ventolin HFA*) 18 Gm Hfa.aer.ad, 2 PUFF INHALATION Q4H Y for WHEEZING AND SOB, #1 INHALER 01/20/16 Oxycodone Hcl* (Oxycontin*) 20 Mg Tab.er.12h, 20 MG PO Q12 Y for PAIN, TAB 01/20/16 Docusate Sodium* (Docusate Sodium*) 100 Mg Capsule, 100 MG PO BID Y for CONSTIPATION, #60 CAP 11/25/15 Divalproex Sodium* (Divalproex Sodium*) 250 Mg Tablet.dr, 750 MG PO QHS, #120 TAB 11/25/15 Aripiprazole* (Abilify*) 2 Mg Tablet, 2 MG PO QHS, #30 TAB 11/25/15 Cholecalciferol* (Vitamin D*) 5,000 Unit Tablet, 5000 UNIT PO DAILY, TAB 07/13/14 Aspirin* (Aspirin* Chew) 81 Mg Tab.chew, 81 MG PO DAILY, TAB.CHEW 07/13/14 Montelukast Sodium* (Montelukast Sodium*) 10 Mg Tablet, 10 MG PO HS, TAB 07/13/14 Allopurinol* (Zyloprim*) 300 Mg Tablet, 300 MG PO DAILY 03/05/13 Multivitamins W-Minerals/Lut (Centrum Silver Chewable Tablet) 1 Tab Tablet, 1 TAB PO DAILY 03/05/13 Discontinued Reported Medications Oxycodone Hcl-Acetaminophen* (Oxycodone Hcl-Acetaminophen*) 5-325 Mg Tablet, 1 TAB PO Q4H Y for PAIN, TAB 01/20/16 Metolazone* (Metolazone*) 5 Mg Tablet, 5 MG PO DAILY, TAB 07/13/14 Potassium Chloride* (K-Dur*) 10 Meq Tab.prt.sr, 10 MEQ PO BID, TAB 07/13/14 Metformin* (Glucophage*) 500 Mg Tab, 500 MG PO BID 03/05/13 Discontinued Scripts Amoxicillin/Potassium Clav (Amox-Clav 875-125 mg Tablet) 875-125 mg Tab, 1 TAB PO BID, #14 TAB Prov:HERBIE FRANCISCO MD 05/19/16 Hydromorphone Hcl (Dilaudid) 4 Mg Tab, 4 MG PO Q4H Y for PAIN, #20 TAB Prov:NAEL LITTLEJOHN 04/05/16 Allergies Allergies: Coded Allergies: morphine (Verified Allergy, Mild, 05/16/16) [place] SAYS SHE DOESNT LIKE IT, MAKES HER SKIN"CRAWL". AWARE -OK TO GIVE Penicillins (Verified Allergy, Unknown, 10/24/16) PMhx/Soc History of Surgery: Yes (RIGHT KNEE SURGERY ) Anesthesia Reaction: No Hx Neurological Disorder: No Hx Respiratory Disorders: No Hx Cardiac Disorders: Yes (HTN) Hx Psychiatric Problems: Yes (DEPRESSION, ANXIETY) Hx Miscellaneous Medical Probl: Yes (HTN, DM2, hypothyroid, COPD, CKD, gout, + tobacco, obesity. ) Hx Alcohol Use: No Hx Substance Use: No Hx Tobacco Use: Yes Smoking Status: Current every day smoker Physical Exam Vitals Vital Signs Date Time Temp Pulse Resp B/P Pulse Ox O2 Delivery O2 Flow Rate FiO2 01/22/17 20:43 98.1 89 20 139/98 100 Physical Exam Const: [] Mild distress when awakened, comfortably sleeping prior to pain medicine Head: Atraumatic Eyes: Normal Conjunctiva Back: No midline or flank tenderness, exam difficult secondary to obesity, bilateral paraspinal lower back tenderness Ext: No cyanosis, or edema Neur: Awake and alert and oriented 3, no focal deficit Psych: Normal Mood and Affect Results 24 hrs Current Medications Medications (Trade) Dose Ordered Sig/Nelson Route PRN Reason Start Time Stop Time Status Last Admin Dose Admin Hydromorphone HCl (Dilaudid) 1 mg ONCE STAT IM 01/22/17 21:16 01/22/17 21:18 DC Ketorolac Tromethamine (Toradol) 60 mg ONCE STAT IM 01/22/17 21:16 01/22/17 21:18 DC Procedures/MDM Acute on chronic back pain. Patient was given Toradol IM injection as well as 1 mg of Dilaudid IM. This helped with her back pain greatly. She is ambulatory. I am discharging her with [place], naproxen, Robaxin. Primary care follow-up in 2 3 days and return precautions. Departure Diagnosis: Primary Impression: Acute exacerbation of chronic low back pain Condition: Stable Patient Instructions: Back Spasm, No Trauma, Chronic Pain Additional Instructions: Call your primary care doctor TOMORROW for an appointment during the next 2-3 days.See the doctor sooner or return here if your condition worsens before your appointment time. LUIS MEEHAN DO Jan 22, 2017 21:23
[2017-01-22 22:20] VITALS: BP 138/79; PULSE 77; RESP 20
== END 2017-01-22 22:21 | disposition home or self-care (01) ==
LOC: E/R 20:37
DX: M54.5 Low back pain (principal); J44.9 Chronic obstructive pulmonary disease, unspecified; I12.0 Hypertensive chronic kidney disease with stage 5 chronic kidney disease or end stage renal disease; N18.5 Chronic kidney disease, stage 5; E11.22 Type 2 diabetes mellitus with diabetic chronic kidney disease; E03.9 Hypothyroidism, unspecified; F17.210 Nicotine dependence, cigarettes, uncomplicated; E66.9 Obesity, unspecified; Z68.30 Body mass index [BMI] 30.0-30.9, adult; Z79.82 Long term (current) use of aspirin
CPT/HCPCS: 96372; 99284; J1170; J1885

== ENCOUNTER 2017-01-24 21:13 | Emergency (ER) | payer OTHER, MEDICAID ==
[~2017-01-24] VITALS: Ht 162.6 cm; Wt 80.0 kg
[~2017-01-24 21:13] MED LIST changes: +METH750T93 PO; +NAPR-260 PO
[2017-01-24 21:15] VITALS: Ht 162.6 cm; Wt 80.0 kg
[2017-01-24] MEDS ORDERED: OXYCODONE/ACETAMINOPHEN (10/325) TAB PO ONE (22:00)
--- NOTE | 2017-01-24 22:00 | ERD ---
ER Documentation Chief Complaint Date/Time DATE: 01/24/17 TIME: 21:56 Chief Complaint bib ems from home for RLE pain s/p fall from bed onto her back HPI Patient is a 61-year-old female who reports severe tailbone pain after she sustained a ground-level fall 5 days ago. Patient states that she was seen in the emergency department and had x-rays. She was discharged with [place]. The patient has chronic back pain issues and has been on narcotics for over 2 years. She previously took 10 mg of Percocet 3 times a day, but recently changed doctors and now has been started on [place]. She states that her pain has not been well controlled. She denies recurrent fall, denies leg weakness or numbness. She states that she feels depressed, but denies suicidality. She has an appointment in 2 days with her primary doctor. ROS All systems reviewed and are negative except as per history of present illness. Medications Home Meds Active Scripts Oxycodone HCl/Acetaminophen (Percocet 10-325 mg Tablet) 1 Each Tablet, 1 EACH PO Q6 Y for PAIN, #20 TAB Prov:KRAIG KINNEY MD 01/24/17 Naproxen* (Naprosyn*) 500 Mg Tablet, 500 MG PO BID, #20 TAB Prov:LUIS MEEHAN DO 01/22/17 Methocarbamol* (Robaxin*) 750 Mg Tablet, 750 MG PO TID, #14 TAB Prov:LUIS MEEHAN DO 01/22/17 Hydrocodone/Acetaminophen ([place] 10-325 Tablet) 1 Each Tablet, 1 EACH PO Q6, # 14 TAB Prov:LUIS MEEHAN DO 01/22/17 Hydrocodone/Acetaminophen ([place] 10-325 Tablet) 1 Each Tablet, 1 TAB PO Q6H Y for PAIN, #20 TAB Prov:GRACIA GAMEZ DO 05/14/16 Reported Medications Diphenoxylate Hcl-Atropine* (Lomotil*) 1 Tab Tab, 1 TAB PO QID Y for DIARRHEA, TAB 01/20/16 Alprazolam* (Alprazolam*) 0.25 Mg Tablet, 0.25 MG PO Q12 Y for ANXIETY, TAB 01/20/16 Cholecalciferol* (Vitamin D*) 5,000 Unit Tablet, 5000 UNIT PO DAILY, TAB 07/13/14 Aspirin* (Aspirin* Chew) 81 Mg Tab.chew, 81 MG PO DAILY, TAB.CHEW 07/13/14 Montelukast Sodium* (Montelukast Sodium*) 10 Mg Tablet, 10 MG PO HS, TAB 07/13/14 Allopurinol* (Zyloprim*) 300 Mg Tablet, 300 MG PO DAILY 03/05/13 Multivitamins W-Minerals/Lut (Centrum Silver Chewable Tablet) 1 Tab Tablet, 1 TAB PO DAILY 03/05/13 Discontinued Reported Medications Albuterol Sulfate* (Ventolin HFA*) 18 Gm Hfa.aer.ad, 2 PUFF INHALATION Q4H Y for WHEEZING AND SOB, #1 INHALER 01/20/16 Oxycodone Hcl* (Oxycontin*) 20 Mg Tab.er.12h, 20 MG PO Q12 Y for PAIN, TAB 01/20/16 Docusate Sodium* (Docusate Sodium*) 100 Mg Capsule, 100 MG PO BID Y for CONSTIPATION, #60 CAP 11/25/15 Divalproex Sodium* (Divalproex Sodium*) 250 Mg Tablet.dr, 750 MG PO QHS, #120 TAB 11/25/15 Aripiprazole* (Abilify*) 2 Mg Tablet, 2 MG PO QHS, #30 TAB 11/25/15 Allergies Allergies: Coded Allergies: morphine (Verified Allergy, Mild, 05/16/16) [place] SAYS SHE DOESNT LIKE IT, MAKES HER SKIN"CRAWL". AWARE -OK TO GIVE Penicillins (Verified Allergy, Unknown, 10/24/16) PMhx/Soc Past medical history: Chronic back pain, diabetes mellitus, hypertension, hypothyroidism, COPD Past surgical history: Eye surgery, right knee Social history: Denies tobacco or alcohol History of Surgery: Yes (RIGHT KNEE SURGERY ) Anesthesia Reaction: No Hx Neurological Disorder: No Hx Respiratory Disorders: No Hx Cardiac Disorders: Yes (HTN) Hx Psychiatric Problems: Yes (DEPRESSION, ANXIETY) Hx Miscellaneous Medical Probl: Yes (HTN, DM2, hypothyroid, COPD, CKD, gout, + tobacco, obesity. ) Hx Alcohol Use: No Hx Substance Use: No Hx Tobacco Use: Yes FmHx Family History: No coronary disease, No diabetes Physical Exam Vitals Vital Signs Date Time Temp Pulse Resp B/P Pulse Ox O2 Delivery O2 Flow Rate FiO2 01/24/17 23:14 62 18 133/69 97 Room Air 01/24/17 21:15 98.1 80 20 160/80 97 Physical Exam Const: Alert, in mild distress Head: Atraumatic Eyes: Normal Conjunctiva, no pallor, no icterus ENT: Normal External Ears, Nose and Mouth. Mucous membranes moist Neck: Full range of motion..~ No meningismus. Resp: Clear to auscultation bilaterally, no wheezes, no rales Cardio: Regular rate and rhythm, no murmurs Abd: Soft, non tender, non distended. No rebound, no Skin: No petechiae or rashes Back: No midline or flank tenderness Ext: No cyanosis, or edema. Pain with ranging of right hip, right leg held in external rotation. 2+ DP pulses bilaterally. Neur: Awake and alert, strength and sensation full in 4 extremities Psych: Depressed affect Results 24 hrs Laboratory Tests Test 01/24/17 21:45 Bedside Glucose 119mg/dL Current Medications Medications (Trade) Dose Ordered Sig/Nelson Route PRN Reason Start Time Stop Time Status Last Admin Dose Admin Oxycodone/ Acetaminophen (Endocet (10/ 325)) 1 tab ONCE ONCE PO 01/24/17 22:00 01/24/17 22:01 DC 01/24/17 22:05 Procedures/MDM MDM: Patient is a 61-year-old female with chronic pain syndrome who sustained a ground-level fall several days ago. She states that she had injury to her tailbone, but imaging does not show any spinal fracture. On exam she had pain with ranging of her right hip, but x-ray does not show fracture. It does show signs of osteoarthritis. The patient denies acute injury, and states that she came to the ER because her pain has not been well controlled with [place]. She also feels depressed, but denies suicidality. There is not an indication for an emergent psychiatric evaluation or hold. The patient previously took Percocet, so I will prescribe her her former dose of Percocet in lieu of [place], which she states is not working well for her. I counseled her on not taking more medication than is prescribed. I advised her to follow-up as scheduled with her PMD in 2 days. There is no evidence of an acute medical condition, and her symptoms are consistent with acute exacerbation of chronic pain. There is no evidence of acute neurologic deficit. Departure Diagnosis: Primary Impression: Chronic pain Chronic pain type: chronic pain syndrome Qualified Code: G89.4 - Chronic pain syndrome Condition: Stable KRAIG KINNEY MD Jan 24, 2017 21:59
--- NOTE | 2017-01-24 22:30 | RADRPT ---
PROCEDURE: XR Hip. CLINICAL INDICATION: Trauma, pain. TECHNIQUE: Two views of the right hip. COMPARISON: None available. FINDINGS: No fracture or dislocation is identified. There is moderate to severe degenerative arthrosis of the hip. There is no significant soft tissue swelling. IMPRESSION: 1. No fracture or dislocation. 2. Moderate to severe degenerative right hip arthrosis RPTAT: HTAR .Shamar Mart MD, MD Date Time Electronically viewed and signed by .Shamar Mart MD, on 01/24/2017 22:30 .R/
[2017-01-24] MEDS ORDERED: OXYC-209 PO (22:35)
[2017-01-24 23:14] VITALS: BP 133/69; PULSE 62; RESP 18
== END 2017-01-24 23:16 | disposition home or self-care (01) ==
LOC: E/R 21:13
DX: G89.4 Chronic pain syndrome (principal); E11.9 Type 2 diabetes mellitus without complications; E03.9 Hypothyroidism, unspecified; I12.0 Hypertensive chronic kidney disease with stage 5 chronic kidney disease or end stage renal disease; N18.5 Chronic kidney disease, stage 5; E66.9 Obesity, unspecified; J44.9 Chronic obstructive pulmonary disease, unspecified; Z68.30 Body mass index [BMI] 30.0-30.9, adult; Z87.891 Personal history of nicotine dependence; Z79.82 Long term (current) use of aspirin
CPT/HCPCS: 73510; 82962

== ENCOUNTER 2017-04-10 14:04 | Emergency (ER) | payer OTHER, MEDICAID ==
[~2017-04-10] VITALS: Wt 113.0 kg
[~2017-04-10 14:04] MED LIST changes: -ALBU18HF INHALATION; -ARIP2TAB8 PO; -DIVA250T4 PO; -DOCU-159 PO; +OXYC-209 PO; -OXYC20TA41 PO
[2017-04-10] MEDS ORDERED: ONDANSETRON 4 MG INJ IV STA (14:11)
[2017-04-10] MEDS ORDERED: SOD CHLORIDE 0.9% 1,000 ML IV STA (14:11)
[2017-04-10] MEDS ORDERED: KETOROLAC 30 MG INJ IV STA (14:30)
[2017-04-10] MEDS ORDERED: ACETAMINOPHEN 325 MG TAB PO ONE (14:30)
[2017-04-10 14:54] LABS: BASOPHIL # 0.1 10^3/ul (0.0-0.1); BASOPHILS % 1.3 % (0.0-2.0); EOSINOPHILS # 0.2 10^3/ul (0.0-0.5); EOSINOPHILS % 2.5 % (0.0-7.0); HEMATOCRIT 38.8 % (37.0-47.0); HEMOGLOBIN 12.6 g/dl (12.0-16.0); LYMPHOCYTES # 2.9 10^3/ul (0.8-2.9); LYMPHOCYTES % 48.3 % (15.0-51.0); MEAN CORPUSCULAR HEMOGLOBIN 30.1 pg (29.0-33.0); MEAN CORPUSCULAR HGB CONC 32.5 g/dl (32.0-37.0); MEAN CORPUSCULAR VOLUME 92.8 fl (82.0-101.0); MEAN PLATELET VOLUME 10.7 fl (7.4-10.4); MONOCYTE # 0.6 10^3/ul (0.3-0.9); MONOCYTES % 9.6 % (0.0-11.0); NEUTROPHIL # 2.3 10^3/ul (1.6-7.5); PLATELET COUNT 143 10^3/UL (140-415); RED BLOOD COUNT 4.18 10^6/ul (4.20-5.40); RED CELL DISTRIBUTION WIDTH 12.4 % (11.5-14.5); WHITE BLOOD COUNT 5.9 10^3/ul (4.8-10.8)
[2017-04-10 15:07] LABS: ALANINE AMINOTRANSFERASE 33 IU/L (13-69); ALBUMIN 3.5 g/dl (3.3-4.9); ALKALINE PHOSPHATASE 80 IU/L (42-121); ANION GAP 12 (8-16); ASPARTATE AMINO TRANSFERASE 29 IU/L (15-46); BILIRUBIN,INDIRECT 0.1 mg/dl (0-1.1); BILIRUBIN,TOTAL 0.1 mg/dl (0.2-1.3); BLOOD UREA NITROGEN 40 mg/dl (7-20); CALCIUM 8.9 mg/dl (8.4-10.2); CARBON DIOXIDE 34 mmol/L (21-31); CHLORIDE 100 mmol/L (97-110); GLUCOSE 81 mg/dl (70-220); POTASSIUM 3.7 mmol/L (3.5-5.1); SODIUM 142 mmol/L (135-144); TOTAL PROTEIN 6.4 g/dl (6.1-8.1)
[2017-04-10 15:24] LABS: TROPONIN-I < 0.012 ng/ml (0.00-0.12)
[2017-04-10 16:08] LABS: ADD UMIC YES; UR ASCORBIC ACID NEGATIVE (NEGATIVE); UR BACTERIA FEW /HPF (NONE SEEN); UR BILIRUBIN (Dip) NEGATIVE (NEGATIVE); UR BLOOD (Dip) NEGATIVE (NEGATIVE); UR CLARITY SLIGHTLY CLOUDY (CLEAR); UR COLOR YELLOW (YELLOW); UR GLUCOSE (Dip) NEGATIVE (NEGATIVE); UR KETONES (Dip) NEGATIVE (NEGATIVE); UR LEUKOCYTE ESTERASE (Dip) 3+ Leu/ul (NEGATIVE); UR NITRITE (Dip) NEGATIVE (NEGATIVE); UR RBC 3 /HPF (0-5); UR SPECIFIC GRAVITY (Dip) 1.016 (1.003-1.030); UR SQUAMOUS EPITHELIAL CELL FEW /HPF (FEW); UR TOTAL PROTEIN (Dip) NEGATIVE (NEGATIVE); UR TRANSITIONAL EPI CELL FEW /HPF (NONE SEEN); UR UROBILINOGEN (Dip) NEGATIVE (NEGATIVE)
--- NOTE | 2017-04-10 16:20 | RADRPT ---
PROCEDURE: XR Hip. CLINICAL INDICATION: Left hip pain. Fall TECHNIQUE: AP and frog-leg lateral views of the left hip were obtained. COMPARISON: None FINDINGS: No acute fracture or dislocations are seen. Mild to moderate osteoarthritis of the left hip is seen. The osseous structures are well mineralized. The soft tissue structures are intact. IMPRESSION: No acute displaced fracture or dislocation. RPTAT: HPNM Physician Jr Date Time Electronically viewed and signed by González Coates Physician on 04/10/2017 16:20 /
--- NOTE | 2017-04-10 16:22 | RADRPT ---
PROCEDURE: XR L-Spine. CLINICAL INDICATION: Low back pain. Fall TECHNIQUE: AP, lateral, and cone down views of the lumbar spine were obtained. COMPARISON: None FINDINGS: Exam is limited in technique. A moderate dextroscoliosis is seen. The lumbar lordosis is reversed. D iffuse osteopenia is seen. The vertebral body heights are normal. Multilevel endplate osteophytosis is seen with disc height loss which is moderate to severe in degree. No acute fracture or subluxatio n is seen. No paravertebral soft tissue abnormality is seen. IMPRESSION: 1. Multilevel degenerative spondylosis of the lumbar spine. 2. Moderate dextroscoliosis with reversal of the lumbar lordosis. RPTAT: HPNM Physician Jr Date Time Electronically viewed and signed by Physician Jr on 04/10/2017 16:22 /
[2017-04-10] MEDS ORDERED: CIPR500T4 PO (17:03)
[2017-04-10] MEDS ORDERED: NITR-58 PO (17:03)
[2017-04-10 17:11] VITALS: BP 100/57; PULSE 51; RESP 18; TEMP 98.6
--- NOTE | 2017-04-10 17:24 | ERD ---
ER Documentation Chief Complaint Date/Time DATE: 04/10/17 TIME: 17:17 Chief Complaint gen weakness and chronic low back pain. bilat leg pain no deformity/loc HPI This 61-year-old female comes to the emergency room for generalized weakness and a fall. She sometimes falls when she is getting out of bed and when she is getting out of bed she fell and landed on her left hip area. She has mild pain in the area and lower back pain which is chronic. She denies any other injury or head injury. She had no loss of consciousness. She denies fever chills chest pain. ROS All systems reviewed and are negative except as per history of present illness. Medications Home Meds Active Scripts Nitrofurantoin Monohyd Macrocr* (Macrobid*) 100 Mg Capsr, 100 MG PO BID for 3 Days, CAP Prov:LUIS MEEHAN DO 04/10/17 Ciprofloxacin Hcl* (Ciprofloxacin Hcl*) 500 Mg Tablet, 500 MG PO BID for 3 Days , TAB Prov:LUIS MEEHAN DO 04/10/17 Oxycodone HCl/Acetaminophen (Percocet 10-325 mg Tablet) 1 Each Tablet, 1 EACH PO Q6 Y for PAIN, #20 TAB Prov:KRAIG KINNEY MD 01/24/17 Naproxen* (Naprosyn*) 500 Mg Tablet, 500 MG PO BID, #20 TAB Prov:LUIS MEEHAN DO 01/22/17 Methocarbamol* (Robaxin*) 750 Mg Tablet, 750 MG PO TID, #14 TAB Prov:LUIS MEEHAN DO 01/22/17 Hydrocodone/Acetaminophen ([place] 10-325 Tablet) 1 Each Tablet, 1 EACH PO Q6, # 14 TAB Prov:LUIS MEEHAN DO 01/22/17 Hydrocodone/Acetaminophen ([place] 10-325 Tablet) 1 Each Tablet, 1 TAB PO Q6H Y for PAIN, #20 TAB Prov:GRACIA GAMEZ DO 05/14/16 Reported Medications Diphenoxylate Hcl-Atropine* (Lomotil*) 1 Tab Tab, 1 TAB PO QID Y for DIARRHEA, TAB 01/20/16 Alprazolam* (Alprazolam*) 0.25 Mg Tablet, 0.25 MG PO Q12 Y for ANXIETY, TAB 01/20/16 Cholecalciferol* (Vitamin D*) 5,000 Unit Tablet, 5000 UNIT PO DAILY, TAB 07/13/14 Aspirin* (Aspirin* Chew) 81 Mg Tab.chew, 81 MG PO DAILY, TAB.CHEW 07/13/14 Montelukast Sodium* (Montelukast Sodium*) 10 Mg Tablet, 10 MG PO HS, TAB 07/13/14 Allopurinol* (Zyloprim*) 300 Mg Tablet, 300 MG PO DAILY 03/05/13 Multivitamins W-Minerals/Lut (Centrum Silver Chewable Tablet) 1 Tab Tablet, 1 TAB PO DAILY 03/05/13 Allergies Allergies: Coded Allergies: morphine (Verified Allergy, Mild, 05/16/16) UNK SAYS SHE DOESNT LIKE IT, MAKES HER SKIN"CRAWL". AWARE -OK TO GIVE Penicillins (Verified Allergy, Unknown, 10/24/16) PMhx/Soc History of Surgery: Yes (RIGHT KNEE SURGERY ) Anesthesia Reaction: No Hx Neurological Disorder: No Hx Respiratory Disorders: No Hx Cardiac Disorders: Yes (HTN) Hx Psychiatric Problems: Yes (DEPRESSION, ANXIETY) Hx Miscellaneous Medical Probl: Yes (HTN, DM2, hypothyroid, COPD, CKD, gout, + tobacco, obesity. ) Hx Alcohol Use: No Hx Substance Use: No Hx Tobacco Use: Yes Smoking Status: Current every day smoker Physical Exam Vitals Vital Signs Date Time Temp Pulse Resp B/P Pulse Ox O2 Delivery O2 Flow Rate FiO2 04/10/17 17:11 98.6 51 18 100/57 97 Room Air 04/10/17 14:11 98.1 84 20 114/60 97 Physical Exam Const: [] Distress Head: Atraumatic Eyes: Normal Conjunctiva EOMI, PERRLA ENT: Normal External Ears, Nose and Mouth. Neck: Full range of motion..~ No meningismus. Resp: Clear to auscultation bilaterally Cardio: Regular rate and rhythm, no murmurs Abd: Soft, non tender, non distended. Normal bowel sounds Skin: No petechiae or rashes Back: No midline or flank tenderness Ext: No cyanosis, no deformities hip joint, no paraspinal muscle spasm lower back no midline tenderness. Distal pulses intact all 4 extremities Neur: Awake and alert oriented 3, cranial nerves II through XII intact, no cerebellar deficit present Psych: Normal Mood and Affect Result Diagram: 04/10/17 1325 04/10/17 1325 Results 24 hrs Laboratory Tests Test 04/10/17 13:25 04/10/17 15:45 White Blood Count 5.910^3/ul Red Blood Count 4.1810^6/ul Hemoglobin 12.6g/dl Hematocrit 38.8% Mean Corpuscular Volume 92.8fl Mean Corpuscular Hemoglobin 30.1pg Mean Corpuscular Hemoglobin Concent 32.5g/dl Red Cell Distribution Width 12.4% Platelet Count 78106^3/UL Mean Platelet Volume 10.7fl Neutrophils % 38.0% Lymphocytes % 48.3% Monocytes % 9.6% Eosinophils % 2.5% Basophils % 1.3% Nucleated Red Blood Cells % 0.0/100WBC Neutrophils # 2.310^3/ul Lymphocytes # 2.910^3/ul Monocytes # 0.610^3/ul Eosinophils # 0.210^3/ul Basophils # 0.110^3/ul Nucleated Red Blood Cells # 0.010^3/ul Sodium Level 142mmol/L Potassium Level 3.7mmol/L Chloride Level 100mmol/L Carbon Dioxide Level 34mmol/L Anion Gap 12 Blood Urea Nitrogen 40mg/dl Creatinine 1.60mg/dl Glucose Level 81mg/dl Lactic Acid Level 1.5mmol/L Calcium Level 8.9mg/dl Total Bilirubin 0.1mg/dl Direct Bilirubin 0.00mg/dl Indirect Bilirubin 0.1mg/dl Aspartate Amino Transf (AST/SGOT) 29IU/L Alanine Aminotransferase (ALT/SGPT) 33IU/L Alkaline Phosphatase 80IU/L Troponin I < 0.012ng/ml Total Protein 6.4g/dl Albumin 3.5g/dl Globulin 2.90g/dl Albumin/Globulin Ratio 1.20 Lipase 45U/L Urine Color YELLOW Urine Clarity SLIGHTLY CLOUDY Urine pH 5.0 Urine Specific [place] 1.016 Urine Ketones NEGATIVEmg/dL Urine Nitrite NEGATIVEmg/dL Urine Bilirubin NEGATIVEmg/dL Urine Urobilinogen NEGATIVEmg/dL Urine Leukocyte Esterase 3+Fabiano/ul Urine Microscopic RBC 3/HPF Urine Microscopic WBC 51/HPF Urine Squamous Epithelial Cells FEW/HPF Urine Transitional Epithelial Cells FEW/HPF Urine Bacteria FEW/HPF Urine Hemoglobin NEGATIVEmg/dL Urine Glucose NEGATIVEmg/dL Urine Total Protein NEGATIVEmg/dl Current Medications Medications (Trade) Dose Ordered Sig/Nelson Route PRN Reason Start Time Stop Time Status Last Admin Dose Admin Sodium Chloride (NS) 1,000 ml @ 1,000 mls/hr Q1H STAT IV 04/10/17 14:11 04/10/17 15:10 DC 04/10/17 15:03 Ondansetron HCl (Zofran Inj) 4 mg ONCE STAT IV 04/10/17 14:11 04/10/17 14:13 DC 04/10/17 15:03 Acetaminophen (Tylenol Tab) 650 mg ONCE ONCE PO 04/10/17 14:30 04/10/17 14:39 DC 04/10/17 15:03 Ketorolac Tromethamine 30 mg 30 mg ONCE STAT IV 04/10/17 14:30 04/10/17 14:39 DC 04/10/17 15:03 Ceftriaxone Sodium (Rocephin) 50 ml @ 100 mls/hr ONCE ONCE IVPB 04/10/17 17:30 04/10/17 17:30 DC Procedures/MDM Urinary tract infection and patient fell from bed with no serious injury detected. She has a creatinine elevation which is lower than previous creatinine levels that I have seen on other visits. She was given a liter of normal saline hydration. I am going to discharge her with both Cipro and Macrobid for 3 days in order to treat her UTI. I am giving her strict return precautions to the ER for any fever chills recurrent falls or any other concerning symptom. Given Toradol and Tylenol and is feeling better. Negative troponin. X-ray left hip interpretation: I see no acute fracture dislocation. Normal left hip Lumbar x-ray interpretation: Multilevel degenerative joint disease without fracture dislocation. Departure Diagnosis: Primary Impression: UTI (urinary tract infection) Additional Impressions: Chronic pain Contusion, hip Condition: Stable Patient Instructions: Understanding Urinary Tract Infections (UTIs), Hip Contusion, Fall Prevention Additional Instructions: Call your primary care doctor TOMORROW for an appointment during the next 2-3 days.See the doctor sooner or return here if your condition worsens before your appointment time. LUIS MEEHAN DO Apr 10, 2017 17:24
[2017-04-10] MEDS ORDERED: CEFTRIAXONE 1 GM/50 ML (PMX) 50 ML IVPB ONE (17:30)
== END 2017-04-10 17:22 | disposition home or self-care (01) ==
LOC: E/R 14:04
DX: N39.0 Urinary tract infection, site not specified (principal); G89.29 Other chronic pain; S70.02XA Contusion of left hip, initial encounter; I12.9 Hypertensive chronic kidney disease with stage 1 through stage 4 chronic kidney disease, or unspecified chronic kidney disease; N18.9 Chronic kidney disease, unspecified; E03.9 Hypothyroidism, unspecified; E66.9 Obesity, unspecified; F17.210 Nicotine dependence, cigarettes, uncomplicated; E11.22 Type 2 diabetes mellitus with diabetic chronic kidney disease; W06.XXXA Fall from bed, initial encounter; Y92.9 Unspecified place or not applicable; Z79.82 Long term (current) use of aspirin
CPT/HCPCS: 72100; 73500; 80053; 81001; 83605; 83690; 84484; 85025; J1885; J2405; J7030; 36415; 96374; 96375